=== PATIENT | male | born 1945 | race African-American/Black ===

== ENCOUNTER 2017-02-03 11:06 | Day surgery (SDC) | payer MEDICARE ==
[~2017-02-03] VITALS: Ht 177.8 cm; Wt 77.1 kg
[~2017-02-03 11:06] MED LIST: LISINOP/HCTZ1 TAB PO; LISINOPRIL10 MG PO
[2017-02-03 14:28] VITALS: BP 101/62
== END 2017-02-03 13:30 | disposition home or self-care (01) ==
LOC: ENDO 11:06
PROVIDERS: ATTEND Internal Medicine Gastroenterology
PROC: 0DBK8ZX Excision of Ascending Colon, Via Natural or Artificial Opening Endoscopic, Diagnostic (ICD-10-PCS; principal; 2017-02-03)
PROC: 0DBP8ZX Excision of Rectum, Via Natural or Artificial Opening Endoscopic, Diagnostic (ICD-10-PCS; 2017-02-03)
DX: Z12.11 Encounter for screening for malignant neoplasm of colon (principal); K64.4 Residual hemorrhoidal skin tags; D12.2 Benign neoplasm of ascending colon; K62.1 Rectal polyp; K64.8 Other hemorrhoids; I10 Essential (primary) hypertension

== ENCOUNTER 2020-07-13 04:46 | Emergency (ER) | payer MEDICARE ==
[~2020-07-13] VITALS: Ht 177.8 cm; Wt 77.0 kg
[2020-07-13 06:19] LABS: HEMATOCRIT 46.3 % (39.0-50.0); HEMOGLOBIN 14.6 g/dl (14.0-18.0); IMMATURE GRANULOCYTES 0.8 % (0.0-5.0); MEAN CELL VOLUME 93.2 fL CALC (80.0-100.0); MEAN CORPUSCULAR HGB 29.4 pG CALC (26.0-32.0); MEAN CORPUSCULAR HGB CONC 31.5 g/dL CAL (32.0-36.0); NEUT# 3.09 thou/uL (1.82-7.42); RED BLOOD COUNT 4.97 mill/uL (4.70-6.10); RED CELL DISTRI WIDTH 12.8 % (11.5-15.5)
[2020-07-13 06:32] LABS: ALBUMIN 4.6 g/dL (3.2-5.0); ALKALINE PHOSPHATASE 69 u/l (38-126); ANION GAP 11 (6-22 (CALC)); BILIRUBIN, TOTAL 0.3 mg/dL (0.0-1.4); BUN 22 mg/dL (8-23); BUN/CREATININE RATIO 17 (12-20 (CALC)); CARBON DIOXIDE 33 mmol/l (22-30); CHLORIDE 101 mmol/l (95-108); CREATININE 1.3 mg/dL (0.7-1.3); GFR 54 ML/MIN (>=60 (CALC)); GFR FOR AFR.AMER. > 60 ML/MIN (>=60 (CALC)); SGOT/AST 31 u/l (19-48); SODIUM 141 mmol/l (137-146); TOTAL PROTEIN 8.1 g/dL (6.3-8.2)
[2020-07-13] MEDS ORDERED: ORPHENADRINE100 MG PO (06:54)
[2020-07-13] MEDS ORDERED: MOTRIN400 MG/TAB PO (06:54)
[2020-07-13 07:00] VITALS: BP 170/85
== END 2020-07-13 07:00 | disposition home or self-care (01) ==
LOC: ED 04:46
PROVIDERS: Emergency Medicine
DX: M79.605 Pain in left leg (principal); I10 Essential (primary) hypertension

== ENCOUNTER 2021-01-19 12:56 | Emergency (ER) | payer MEDICARE ==
[~2021-01-19] VITALS: Ht 175.3 cm; Wt 77.2 kg
[~2021-01-19 12:56] MED LIST changes: +MOTRIN400 MG/TAB PO; +ORPHENADRINE100 MG PO
[2021-01-19] MEDS ORDERED: LISINOP/HCTZ1 TAB PO (13:28)
[2021-01-19 13:41] LABS: HEMOGLOBIN 14.6 g/dl (14.0-18.0); IMMATURE GRANULOCYTES 0.3 % (0.0-5.0); MEAN CELL VOLUME 91.6 fL CALC (80.0-100.0); MEAN CORPUSCULAR HGB 29.1 pG CALC (26.0-32.0); MEAN CORPUSCULAR HGB CONC 31.7 g/dL CAL (32.0-36.0); NEUT# 9.91 thou/uL (1.82-7.42); RED BLOOD COUNT 5.02 mill/uL (4.70-6.10); RED CELL DISTRI WIDTH 12.4 % (11.5-15.5)
[2021-01-19 13:56] LABS: CREATININE 1.5 mg/dL (0.7-1.3); POTASSIUM 3.8 mmol/l (3.5-5.1)
[2021-01-19] MEDS ORDERED: BACTRIM DS1 TAB PO (14:40)
[2021-01-19] MEDS ORDERED: CEPHALEXIN500 MG PO (14:40)
[2021-01-19 15:10] VITALS: BP 121/74
== END 2021-01-19 15:10 | disposition left against medical advice (07) ==
LOC: ED 12:56
PROVIDERS: Family Medicine
DX: L03.113 Cellulitis of right upper limb (principal); I10 Essential (primary) hypertension; Z91.19 Patient's noncompliance with other medical treatment and regimen